=== PATIENT | female | born 1985 | race African-American/Black ===

== ENCOUNTER 2016-07-29 18:20 | Emergency (ER) | payer OTHER ==
[~2016-07-29] VITALS: Ht 165.1 cm; Wt 63.5 kg
[~2016-07-29 18:20] MED LIST: BACL10TA PO; DOCU-27 PO; HYDR-2666 PO; LISI10TA2 PO; NAPR500T PO; ONDA4TAB7 PO; OXYC-323 PO; PHEN-318 PO; RANI150T6 PO; SULF1TAB24 PO; TAMS0.4C2 PO; TRAZ100T12 PO
[2016-07-29 18:30] VITALS: BP 147/100
--- NOTE | 2016-07-29 19:01 | PHYS DOC ---
Past Medical History Past Medical History: Asthma, Depression, Hypertension, Kidney Stone Additional Past Medical Histor: HERNIA Past Surgical History: Other Additional Past Surgical Histo: HERNIA Alcohol Use: Occasionally Drug Use: None Adult General Chief Complaint Chief Complaint: ABDOMINAL PAIN HPI HPI Patient is a 30 year old female with prior ventral hernia repair who presents with more than 1 year of ventral abdominal pain that is constant with fluctuating intensity. Notes 1 year of intermittent nausea and vomiting as well. Denies any changes from chronic complaints. State she was seen by her OB doctor recently and told she likely has another ventral hernia and to get this checked out by her surgeon. She does not know who her surgeon was, so she came here for help as this is where she was prior repaired. She denies fever or chills, current nausea, constipation, dysuria, hematuria. States she had a normal bowel movement this morning. Review of Systems Review of Systems Constitutional: Denies fever or chills [] Eyes: Denies change in visual acuity, redness, or eye pain [] HENT: Denies nasal congestion or sore throat [] Respiratory: Denies cough or shortness of breath [] Cardiovascular: No additional information not addressed in HPI [] GI: Denies bloody stools or diarrhea [] : Denies dysuria or hematuria [] Musculoskeletal: Denies back pain or joint pain [] Integument: Denies rash or skin lesions [] Neurologic: Denies headache, focal weakness or sensory changes [] Endocrine: Denies polyuria or polydipsia [] Allergies Allergies Allergies Coded Allergies Type Severity Reaction Last Updated Verified No Known Drug Allergies 04/11/15 No Physical Exam Physical Exam Constitutional: Well developed, well nourished, no acute distress, non-toxic appearance. [] HENT: Normocephalic, atraumatic, bilateral external ears normal, oropharynx moist, nose normal. [] Eyes: PERRLA, EOMI. [] Neck: Normal range of motion, supple. [] Cardiovascular:Heart rate regular rhythm [] Lungs & Thorax: Bilateral breath sounds clear to auscultation [] Abdomen: Bowel sounds normal, soft, tenderness about abdominal wall defect vs scarring that is approx 4cm in area superior of umbilicus, no protruding masses , no guarding or rebound. [] Skin: Warm, dry, no erythema, no rash. [] Back: Normal ROM. [] Extremities: No tenderness, ROM intact, no edema. [] Neurologic: Alert and oriented X 3, normal motor function, normal sensory function, no focal deficits noted. [] Psychologic: Affect normal, judgement normal, mood normal. [] Current Patient Data Vital Signs Vital Signs Date Time Temp Pulse Resp B/P (MAP) Pulse Ox O2 Delivery O2 Flow Rate FiO2 07/29/16 18:30 98.4 86 18 147/100 (116) 99 Room Air 98.4 Course & Med Decision Making Course & Med Decision Making Appears Dr. Presley performed prior hernia repair. Discussed she does not appear obstructive at this time and do not recommend imaging or labs. Encouraged follow up with PCP for chronic abdominal pain and to call surgery clinic to discuss possible hernia repair. Return precautions given. She understands plan. Dragon Disclaimer Dragon Disclaimer This electronic medical record was generated, in whole or in part, using a voice recognition dictation system. Departure Departure Impression: Primary Impression: Abdominal pain Additional Impression: Ventral hernia without obstruction or gangrene Disposition: HOME, SELF-CARE Condition: STABLE Referrals: AKASH PRESLEY MD Patient Instructions: Hernia, [id number] Additional Instructions: Take Tylenol or naproxen as needed for pain. Follow up with general surgery clinic and primary care clinic. Call for appointment. Return for any concerns. Problem Qualifiers Primary Impression: Abdominal pain Abdominal location: unspecified location Qualified Codes: R10.9 - Unspecified abdominal pain Ramsey RODRIGUEZ MD July 29, 2016 19:01
== END 2016-07-29 19:08 | disposition home or self-care (01) ==
LOC: ER 18:20
DX: K43.9 Ventral hernia without obstruction or gangrene (principal); J45.909 Unspecified asthma, uncomplicated; F32.9 Major depressive disorder, single episode, unspecified; I10 Essential (primary) hypertension
CPT/HCPCS: 81025; 99284

== ENCOUNTER 2016-12-27 09:00 | Emergency (ER) | payer OTHER ==
[~2016-12-27] VITALS: Ht 165.1 cm; Wt 63.5 kg
[~2016-12-27 09:00] MED LIST changes: +DOCU-109 PO; -DOCU-27 PO; -HYDR-2666 PO; +HYDR-2758 PO
[2016-12-27] MEDS ORDERED: traMADol 50 MG TABLET PO ONE (09:30)
[2016-12-27 09:47] LABS: BILIRUBIN,URINE SMALL (NEG); GLUCOSE,URINE NEGATIVE (NEG); NITRITE,URINE NEGATIVE (NEG); PROTEIN,URINE NEGATIVE (NEG-TRACE)
[2016-12-27] MEDS ORDERED: IBUPROFEN 600 MG TABLET. PO ONE (10:00)
[2016-12-27 10:05] LABS: BACTERIA,URINE FEW /HPF (0-FEW); RBC,URINE 0 /HPF (0-2); SQUAMOUS EPITHELIAL CELL,UR MOD /LPF; WBC,URINE OCC /HPF (0-4); YEAST,URINE PRESENT /HPF
[2016-12-27] MEDS ORDERED: FLUC150T PO (10:39)
--- NOTE | 2016-12-27 10:39 | PHYS DOC ---
Past Medical History Past Medical History: Asthma, Depression, Hypertension, Kidney Stone Additional Past Medical Histor: HERNIA Past Surgical History: Other Additional Past Surgical Histo: HERNIA Additional Information: PT REPORTS NOT SMOKING AT THIS TIME. Alcohol Use: Occasionally Additional Information: PT REPORTS SHE DOES NOT DRINK AT THIS TIME. Drug Use: None Adult General Chief Complaint Chief Complaint: ABDOMINAL PAIN HPI HPI Patient is a 31 year old female with a history of hypertension, depression, asthma, ventral hernia repair in August, who presents today complaining of periumbilical pressure during voiding and dysuria that began a week ago. Patient denies any fever. Denies any nausea, vomiting or diarrhea. Review of Systems Review of Systems Constitutional: Denies fever or chills [] Eyes: Denies change in visual acuity, redness, or eye pain [] HENT: Denies nasal congestion or sore throat [] Respiratory: Denies cough or shortness of breath [] Cardiovascular: No additional information not addressed in HPI [] GI: periumbilical abdominal pressure, denies nausea, vomiting, bloody stools or diarrhea [] : dysuria denies hematuria [] Musculoskeletal: Denies back pain or joint pain [] Integument: Denies rash or skin lesions [] Neurologic: Denies headache, focal weakness or sensory changes [] Current Medications Current Medications Current Medications Medications (Trade) Dose Ordered Sig/Fidel Start Time Stop Time Status Last Admin Dose Admin Fluconazole (Diflucan) 150 mg 1X ONCE 12/27/16 10:45 12/27/16 10:46 DC 12/27/16 10:44 150 MG Ibuprofen (Motrin) 600 mg 1X ONCE 12/27/16 10:00 12/27/16 10:01 DC 12/27/16 09:56 600 MG Tramadol HCl (Ultram) 50 mg 1X ONCE 12/27/16 09:30 12/27/16 09:31 Cancel Allergies Allergies Allergies Coded Allergies Type Severity Reaction Last Updated Verified No Known Drug Allergies 04/11/15 No Physical Exam Physical Exam Constitutional: Well developed, well nourished, no acute distress, non-toxic appearance. [] HENT: Normocephalic, atraumatic, bilateral external ears normal, oropharynx moist, no oral exudates, nose normal. [] Eyes: PERRLA, EOMI, conjunctiva normal, no discharge. [] Neck: Normal range of motion, no tenderness, supple, no stridor. [] Cardiovascular:Heart rate regular rhythm, no murmur [] Lungs & Thorax: Bilateral breath sounds clear to auscultation [] Abdomen: Bowel sounds normal, soft, no tenderness, no masses, no pulsatile masses. [] Skin: Warm, dry, no erythema, no rash. [] Back: No tenderness, no CVA tenderness. [] Extremities: No tenderness, no cyanosis, no clubbing, ROM intact, no edema. [] Neurologic: Alert and oriented X 3, normal motor function, normal sensory function, no focal deficits noted. [] Psychologic: Affect normal, judgement normal, mood normal. [] Current Patient Data Lab Values Laboratory Tests Test 12/27/16 09:35 12/27/16 09:37 Urine Collection Type Unknown Urine Color Tiffanie Urine Clarity Clear Urine pH 7.0 Urine Specific [place] 1.025 Urine Protein Negative mg/dL (NEG-TRACE) Urine Glucose (UA) Negative mg/dL (NEG) Urine Ketones (Stick) Negative mg/dL (NEG) Urine Blood Negative (NEG) Urine Nitrite Negative (NEG) Urine Bilirubin Small (NEG) Urine Urobilinogen Dipstick 1.0 mg/dL (0.2 mg/dL) Urine Leukocyte Esterase Trace (NEG) Urine RBC 0 /HPF (0-2) Urine WBC Occ /HPF (0-4) Urine Squamous Epithelial Cells Mod /LPF Urine Bacteria Few /HPF (0-FEW) Urine Mucus Marked /LPF Urine Yeast Present /HPF POC Urine HCG, Qualitative Hcg negative (Negative) EKG EKG [] Radiology/Procedures Radiology/Procedures [] Course & Med Decision Making Course & Med Decision Making Pertinent Labs and Imaging studies reviewed. (See chart for details) Patient is in the ED with periumbilical pressure and dysuria that began one week ago. Urine looks contaminated. It has trace amount of leukocytes and moderate squamous cell epithelium. She is positive for yeast in her urine. D/C with fluconazole. Recommended Tylenol/Motrin for pain. Recommended she follows up with her FLOORING GRADER or PCP in 1-2 weeks if symptoms continue. Dragon Disclaimer Dragon Disclaimer This electronic medical record was generated, in whole or in part, using a voice recognition dictation system. Departure Departure Impression: Primary Impression: Yeast UTI Disposition: HOME, SELF-CARE Condition: STABLE Referrals: NO PCP (PCP) FRANKO SOTO DO follow up with your doctor in one week Patient Instructions: Dysuria-Brief Additional Instructions: Your urine shows you have a yeast infection. We put you on medications to clear this infection. Take it as prescribed. Follow-up with your doctor in one week. Scripts Ibuprofen (IBUPROFEN) 600 Mg Tablet 600 MG PO PRN Q6HRS Y for INFLAMMATION, #30 TAB Prov: ROLLY MCKEON APRN 12/27/16 Fluconazole (DIFLUCAN) 150 Mg Tablet 1 TAB PO ONCE, #1 TAB 0 Refills take seven days from today Prov: ROLLY MCKEON APRN 12/27/16 ROLLY MCKEON APRN Dec 27, 2016 10:39
[2016-12-27 10:42] VITALS: BP 147/83
[2016-12-27] MEDS ORDERED: FLUCONAZOLE 100 MG TABLET. PO ONE (10:45)
[2016-12-27] MEDS ORDERED: IBUP-1007 PO (11:08)
== END 2016-12-27 11:04 | disposition home or self-care (01) ==
LOC: ER 09:00
DX: B37.49 Other urogenital candidiasis (principal); J45.909 Unspecified asthma, uncomplicated; I10 Essential (primary) hypertension; Z87.442 Personal history of urinary calculi
CPT/HCPCS: 81001; 81025; 99283

== ENCOUNTER 2018-02-22 09:22 | Day surgery (SDC) | payer OTHER ==
[~2018-02-22] VITALS: Ht 165.1 cm; Wt 73.5 kg
[~2018-02-22 09:22] MED LIST changes: +CYCL10TA2 PO; +FLUC150T PO; +FLUT16SP NS; -HYDR-2758 PO; +HYDR-2761 PO; +IBUP-1007 PO; +IV RINGERS,LACTATED 1000ML 1,000 ML IV SCH; +LIDOCAINE 1% PF 2 ML VIAL. ID PRN; +NAPR-683 PO; -NAPR500T PO; +ONDANSETRON PF 4 MG/2 ML VIAL. IV PRN; -OXYC-323 PO; +OXYC1TAB15 PO; +PROCHLORPERAZINE 10 MG/2 ML VIAL. IV PRN; +RANI150T21 PO; -RANI150T6 PO; +TRAZ-86 PO; -TRAZ100T12 PO; +VENTOLIN HFA18 GM INH; +fentaNYL PF VIAL 100 MCG/2 ML VIAL IV PRN
[2018-02-22] MEDS ORDERED: SEVOFLURANE 61 TO 120 MINUTES. IH ONE (09:59)
[2018-02-22] MEDS ORDERED: fentaNYL PF VIAL 100 MCG/2 ML VIAL ONE ×4 (09:59→13:31)
[2018-02-22] MEDS ORDERED: ROCURONIUM 50 MG/5 ML VIAL. ONE ×2 (09:59→11:12)
[2018-02-22] MEDS ORDERED: MIDAZOLAM HCL/PF 2 MG/2 ML VIAL. ONE (09:59)
[2018-02-22] MEDS ORDERED: NEOSTIGMINE METHYLSULFATE 5 MG/5 ML SYRINGE. ONE (09:59)
[2018-02-22] MEDS ORDERED: GLYCOPYRROLATE 1 MG/5 ML VIAL. ONE (09:59)
[2018-02-22 10:00] LABS: U PREG PATIENT NEGATIVE (NEG)
[2018-02-22] MEDS ORDERED: ONDANSETRON PF 4 MG/2 ML VIAL. ONE (10:00)
[2018-02-22] MEDS ORDERED: PROPOFOL 20 ML IV ONE (10:00)
[2018-02-22] MEDS ORDERED: DEXAMETHASONE SOD PHOS 20 MG/5 ML VIAL. ONE (10:00)
[2018-02-22] MEDS ORDERED: KETOROLAC 30 MG/ML INJ FOR OR. INJ ONE (10:00)
[2018-02-22] MEDS ORDERED: LIDOCAINE 2% PF Vial for OR 5 ML VIAL. ONE (10:00)
[2018-02-22] MEDS ORDERED: BUPIVAC MPF-EPI 0.5%-1:200000 30 ML VIAL. ONE (10:14)
[2018-02-22] MEDS ORDERED: ESMOLOL 100 MG/10 ML VIAL. IV ONE (11:00)
[2018-02-22] MEDS ORDERED: hydrALAZINE 20 MG/ML VIAL. ONE (11:00)
[2018-02-22] MEDS ORDERED: METOPROLOL TARTRATE 5 MG/5 ML VIAL. IVP ONE (11:33)
--- NOTE | 2018-02-22 12:39 | PDOC4 ---
Operative Note Operative Note Date: 02/22/2018 Preoperative diagnosis: Recurrent incisional hernia Postoperative diagnosis: Same Procedure: Robotic-assisted laparoscopic ventral hernia repair with mesh Surgeon: Bobby Specimen: None Dictation: Patient is a 32-year-old female but had a incisional hernia repair several years ago. Had a during her she developed a recurrence of her hernia. Procedure of robotic-assisted laparoscopic incisional hernia repair with mesh was explained to the patient in detail all risks benefits were also discussed including bleeding infection injury to intra- abdominal contents possibly necessitating further open operations. Alternatives to this procedure also discussed with the patient seemed understanding table verbal and written consent had a procedure performed. Patient was taken to the operating room placed in supine position general anesthesia was initiated once patient was sleeping in bed her abdomen was prepped and draped usual sterile fashion using ChloraPrep and area in the left upper quadrant was injected with quarter percent Marcaine with epinephrine surgeon Jennifer blade scalpel and a 5 mm Visiport was placed into the abdomen under direct visualization and a pneumoperitoneum achieved. The abdomen was inspected as quite a few adhesions A da Norma port was placed in the left mid abdomen and a second da Norma port was placed in the left lower abdomen a 5 mm Visiport was changed out for da Norma port several of the adhesions were taken down with sharp dissection. At this point the da Norma robot was brought in and docked to all port sites. Rest of the adhesions were taken down with sharp dissection as well as a loop of incarcerated bowel in the hernia defect which was reduced hernia then was closed with a running permanent 2-0V lock suture. Ventral light ST mesh was then placed within the abdomen and over the hernia defect this was sewn into place with a running 20V lock absorbable suture. Ports run and removed the pneumoperitoneum reduced all port sites closed for septic Monocryl Mastisol Steri-Strips and island dressings were applied. Patient was awakened and extubated in the operating room to recovery in stable condition all sponge instrument needle clinical mental health counselor status correct estimated blood loss 20 mL. AKASH PRESLEY MD Feb 22, 2018 12:39
--- NOTE | 2018-02-22 12:40 | DISCH ---
DISCHARGE INSTRUCTIONS Condition on Discharge Condition on Discharge: Stable Activity After Discharge Activity Instructions for Disc: Avoid exertion Other activity instructions: no lifting greater than 20 pounds for 2 weeks Lifting Instructions after Dis: No heavy lifting Diet after Discharge Diet after Discharge: Regular Wound Incision Care Other wound/incision instructi: Bouchra shower in 24 hours Contacting the after DC Call your doctor for: If your condition worsens Follow-Up Follow up with: Dr. Presley in 2 weeks AKASH PRESLEY MD Feb 22, 2018 12:40
[2018-02-22] MEDS ORDERED: PROCHLORPERAZINE 10 MG/2 ML VIAL. ONE (12:44)
[2018-02-22] MEDS: fentaNYL PF VIAL 100 MCG/2 ML VIAL IV PRN ×4 (13:08→13:47)
[2018-02-22] MEDS ORDERED: HYDR-3164 PO (13:14)
[2018-02-22] MEDS ORDERED: HYDROcodone/APAP 5/325MG 1 TAB TABLET PO ONE (13:30)
[2018-02-22] MEDS ORDERED: HYDROcodone/APAP 5/325MG 1 TAB TABLET ONE (13:45)
[2018-02-22 14:43] VITALS: BP 125/75
== END 2018-02-22 14:52 | disposition home or self-care (01) ==
LOC: SURG 09:22
PROVIDERS: ATTEND Surgery
DX: K43.0 Incisional hernia with obstruction, without gangrene (principal); I10 Essential (primary) hypertension; F32.9 Major depressive disorder, single episode, unspecified; J44.9 Chronic obstructive pulmonary disease, unspecified; Z88.5 Allergy status to narcotic agent; Z79.2 Long term (current) use of antibiotics; Z79.899 Other long term (current) drug therapy; Z87.442 Personal history of urinary calculi; Z98.890 Other specified postprocedural states; Z82.49 Family history of ischemic heart disease and other diseases of the circulatory system; Z87.891 Personal history of nicotine dependence; Z72.89 Other problems related to lifestyle
CPT/HCPCS: 49657; 81025; A7015; C1781; J0360; J0780; J1100; J1885; J2001; J2250; J2405; J2704; J2710; J3010; J3490; J7120; S2900; J0690

== ENCOUNTER → 2018-10-17 | Day surgery (SDC) | payer OTHER ==
[~2018-10-17] VITALS: Ht 165.1 cm; Wt 70.0 kg
[~2018-10-17] MED LIST changes: +ACETAMINOPHEN 500 MG TABLET PO PRN; +BUPIVACAINE MPF 0.25% 30 ML VIAL. ONE; +DESFLURANE 16 TO 30 MINUTES. IH ONE; +DEXAMETHASONE SOD PHOS 4 MG/ML VIAL ONE; +GLYCOPYRROLATE 1 MG/5 ML VIAL. ONE; +HYDR-3164 PO; +HYDROcodone/APAP 5/325MG 1 TAB TABLET PO ONE; +HYDROmorphone 2 MG/ML VIAL IV PRN; +KETOROLAC 30 MG/ML INJ FOR OR. INJ ONE; +LIDOCAINE 2% PF 5 ML VIAL. ONE; +MORPHINE SULFATE 2 MG/ML VIAL. IV PRN; +NEOSTIGMINE METHYLSULFATE 5 MG/5 ML SYRINGE. ONE; +OMEP20TA8 PO; +ONDANSETRON PF 4 MG/2 ML VIAL. ONE; +PROPOFOL 20 ML IV ONE; +RANI-376 PO; -RANI150T21 PO; +ROCURONIUM 50 MG/5 ML VIAL. ONE; +TRAM50TA PO; +fentaNYL PF VIAL 100 MCG/2 ML VIAL ONE
--- NOTE | 2018-10-17 13:11 | PDOC4 ---
Operative Note Operative Note Date: 10/17/2018 Preoperative diagnosis: Abdominal pain Postoperative diagnosis: Abdominal adhesions Procedure: Diagnostic laparoscopy with lysis of adhesions Surgeon: Bobby Specimen: None Dictation: Patient is a 33-year-old female who's describing abdominal pain generalized she's had a couple of abdominal hernias repaired as well as an inguinal hernia with mesh last time she had a ventral hernia repair she had quite a few adhesions she states that after she had that repair and adhesions taken down she felt much better. Procedure of diagnostic laparoscopy with lysis of adhesions was explained to the patient in detail risk benefits were also discussed including bleeding infection alternatives to the procedure also discussed with the patient who seemed to understand and gave both verbal and written consent to have the procedure performed. Patient was taken to the operating room placed in supine position general anesthesia was initiated once patient was sleep and intubated her abdomen was prepped and draped usual sterile fashion using ChloraPrep and area in the left upper quadrant was injected with quarter percent Marcaine incision was made 11 blade knife and a 5 mm Visiport was placed under direct visualization into the abdomen creating pneumoperitoneum. The abdomen was inspected with 5 mm scope and camera there were quite a few adhesions throughout the abdomen. A 5 mill meter port was placed in the left mid abdomen and one in the left lower abdomen under direct visualization using the sono incision the adhesions were taken down with sharp and blunt dissection down to the pelvis. Most of the adhesions in the upper abdomen for 2 omentum. Within the pelvis the uterus was adhesed to the anterior abdominal wall. Intraoperative phone call was made to [facility] [employer]CHIT[employer] surgeon's recommendation was to leave the uterus in place as is. Multiple photographs of the uterus ovaries were taken. At this point the pneumoperitoneum was reduced all ports removed port sites were all closed with 40 subarticular Monocryl Mastisol Steri-Strips and island dressings were applied. Patient was awakened and extubated in the operating room taken to recovery in stable condition all sponge instrument needle counts listed as correct estimated blood loss 5 mL AKASH PRESLEY MD Oct 17, 2018 13:11
--- NOTE | 2018-10-17 13:14 | DISCH ---
DISCHARGE INSTRUCTIONS Condition on Discharge Condition on Discharge: Stable Activity After Discharge Activity Instructions for Disc: Avoid exertion Other activity instructions: no lifting more than 20 pounds for 2 weeks Lifting Instructions after Dis: No heavy lifting Diet after Discharge Diet after Discharge: Regular Wound Incision Care Other wound/incision instructi: Bouchra shower in 24 hours Contacting the after DC Call your doctor for: If your condition worsens Follow-Up Follow up with: Dr. Presley in 2 weeks AKASH PRESLEY MD Oct 17, 2018 13:14
[2018-10-17] MEDS: fentaNYL PF VIAL 100 MCG/2 ML VIAL IV PRN ×3 (13:33→14:13)
[2018-10-17 14:33] VITALS: BP 142/78
== END ==
LOC: SURG 10:48
PROVIDERS: ATTEND Surgery
DX: K66.0 Peritoneal adhesions (postprocedural) (postinfection) (principal); F32.9 Major depressive disorder, single episode, unspecified; J44.9 Chronic obstructive pulmonary disease, unspecified; E78.5 Hyperlipidemia, unspecified; I12.9 Hypertensive chronic kidney disease with stage 1 through stage 4 chronic kidney disease, or unspecified chronic kidney disease; N18.1 Chronic kidney disease, stage 1; Z98.890 Other specified postprocedural states; Z87.891 Personal history of nicotine dependence
CPT/HCPCS: 49329; 81025; A7015; J0690; J1100; J2001; J2405; J2704; J2710; J3010; J3490; J1885

== ENCOUNTER 2018-11-29 09:44 | Emergency (ER) | payer OTHER ==
[~2018-11-29] VITALS: Ht 165.1 cm; Wt 69.9 kg
[~2018-11-29 09:44] MED LIST changes: -ACETAMINOPHEN 500 MG TABLET PO PRN; -BUPIVACAINE MPF 0.25% 30 ML VIAL. ONE; -DESFLURANE 16 TO 30 MINUTES. IH ONE; -DEXAMETHASONE SOD PHOS 4 MG/ML VIAL ONE; -GLYCOPYRROLATE 1 MG/5 ML VIAL. ONE; -HYDROcodone/APAP 5/325MG 1 TAB TABLET PO ONE; -HYDROmorphone 2 MG/ML VIAL IV PRN; -IV RINGERS,LACTATED 1000ML 1,000 ML IV SCH; -KETOROLAC 30 MG/ML INJ FOR OR. INJ ONE; -LIDOCAINE 1% PF 2 ML VIAL. ID PRN; -LIDOCAINE 2% PF 5 ML VIAL. ONE; -MORPHINE SULFATE 2 MG/ML VIAL. IV PRN; -NEOSTIGMINE METHYLSULFATE 5 MG/5 ML SYRINGE. ONE; -ONDANSETRON PF 4 MG/2 ML VIAL. IV PRN; -ONDANSETRON PF 4 MG/2 ML VIAL. ONE; -PROCHLORPERAZINE 10 MG/2 ML VIAL. IV PRN; -PROPOFOL 20 ML IV ONE; -ROCURONIUM 50 MG/5 ML VIAL. ONE; -fentaNYL PF VIAL 100 MCG/2 ML VIAL IV PRN; -fentaNYL PF VIAL 100 MCG/2 ML VIAL ONE
[2018-11-29] MEDS ORDERED: KETOROLAC 30 MG/ML VIAL. IV ONE (10:15)
--- NOTE | 2018-11-29 10:37 | PHYS DOC ---
Past Medical History Past Medical History: Asthma, Depression, Hypertension, Kidney Stone Additional Past Medical Histor: HERNIA Past Surgical History: Other Additional Past Surgical Histo: HERNIA Alcohol Use: Occasionally Drug Use: None Adult General Chief Complaint Chief Complaint: ABDOMINAL PAIN HPI HPI Patient is a 33 year old female with history of depression, hypertension, asthma, who presents to the ED today complaining of 8 out of 10 generalized abdominal pain that has been going on for months. Patient denies any exacerbating or relieving factors. She describes the pain as sharp and constant. She states on October 17, 2018 and she had a laparoscopic surgery to remove admissions from her abdomen. She states she has previous history of umbilical hernia repair as well as inguinal hernia repair and developed adhesions from these surgeries. She states when they did the procedure the general surgeon informed her she has adhesions in her pelvis. She states the general surgeon set her with an appointment to see an MULTIMEDIA EDITOR, she states she was seen by the MULTIMEDIA EDITOR on Sunday this week who also did the pelvic exam as well as pelvic ultrasound, she states the MULTIMEDIA EDITOR informed her she needs to follow-up sometime in December. Patient states she has continued to have the pain hence the reason she came back to the ED. Review of Systems Review of Systems Constitutional: Denies fever or chills [] Eyes: Denies change in visual acuity, redness, or eye pain [] HENT: Denies nasal congestion or sore throat [] Respiratory: Denies cough or shortness of breath [] Cardiovascular: No additional information not addressed in HPI [] GI: Reports generalized abdominal pain, denies nausea, vomiting, bloody stools or diarrhea [] : Denies dysuria or hematuria [] Musculoskeletal: Denies back pain or joint pain [] Integument: Denies rash or skin lesions [] Neurologic: Denies headache, focal weakness or sensory changes [] All other systems were reviewed and found to be within normal limits, except as documented in this note. Current Medications Current Medications Current Medications Medications (Trade) Dose Ordered Sig/Fidel Start Time Stop Time Status Last Admin Dose Admin Ketorolac Tromethamine (Toradol 30mg Vial) 30 mg 1X ONCE 11/29/18 11:30 11/29/18 11:31 DC 11/29/18 11:19 30 MG Allergies Allergies Allergies Coded Allergies Type Severity Reaction Last Updated Verified acetaminophen Allergy Unknown Itching 10/17/18 Yes oxycodone Allergy Unknown Itching 10/17/18 Yes Physical Exam Physical Exam Constitutional: Well developed, well nourished, no acute distress, non-toxic appearance. [] HENT: Normocephalic, atraumatic, bilateral external ears normal, oropharynx moist, no oral exudates, nose normal. [] Eyes: PERRLA, EOMI, conjunctiva normal, no discharge. [] Neck: Normal range of motion, no tenderness, supple, no stridor. [] Cardiovascular:Heart rate regular rhythm, no murmur [] Lungs & Thorax: Bilateral breath sounds clear to auscultation [] Abdomen: Healed laparoscopic surgical incisions noted on the left side of the abdomen. Bowel sounds normal, soft, no tenderness, no masses, no pulsatile masses. [] Skin: Warm, dry, no erythema, no rash. [] Back: No tenderness, no CVA tenderness. [] Extremities: No tenderness, no cyanosis, no clubbing, ROM intact, no edema. [] Neurologic: Alert and oriented X 3, normal motor function, normal sensory function, no focal deficits noted. [] Psychologic: Affect normal, judgement normal, mood normal. [] Current Patient Data Vital Signs Vital Signs Date Time Temp Pulse Resp B/P (MAP) Pulse Ox O2 Delivery O2 Flow Rate FiO2 11/29/18 11:38 69 16 138/92 (107) 100 Room Air 11/29/18 10:00 98.3 98.3 Lab Values Laboratory Tests Test 11/29/18 10:25 11/29/18 10:26 11/29/18 12:35 Urine Collection Type Unknown Urine Color Yellow Urine Clarity Clear Urine pH 7.0 Urine Specific [place] 1.015 Urine Protein Negative mg/dL (NEG-TRACE) Urine Glucose (UA) Negative mg/dL (NEG) Urine Ketones (Stick) Negative mg/dL (NEG) Urine Blood Large (NEG) Urine Nitrite Negative (NEG) Urine Bilirubin Negative (NEG) Urine Urobilinogen Dipstick 1.0 mg/dL (0.2 mg/dL) Urine Leukocyte Esterase Negative (NEG) Urine RBC >40 /HPF (0-2) Urine WBC 1-4 /HPF (0-4) Urine Squamous Epithelial Cells Mod /LPF Urine Bacteria 0 /HPF (0-FEW) Urine Opiates Screen Neg (NEG) Urine Methadone Screen Neg (NEG) Urine Barbiturates Neg (NEG) Urine Phencyclidine Screen Neg (NEG) Urine Amphetamine/Methamphetamine Neg (NEG) Urine Benzodiazepines Screen Neg (NEG) Urine Cocaine Screen Neg (NEG) Urine Cannabinoids Screen Pos (NEG) Urine Ethyl Alcohol Neg (NEG) POC Urine HCG, Qualitative Hcg negative (Negative) White Blood Count 10.8 x10^3/uL (4.0-11.0) Red Blood Count 4.31 x10^6/uL (3.50-5.40) Hemoglobin 13.6 g/dL (12.0-15.5) Hematocrit 40.5 % (36.0-47.0) Mean Corpuscular Volume 94 fL (79-100) Mean Corpuscular Hemoglobin 32 pg (25-35) Mean Corpuscular Hemoglobin Concent 34 g/dL (31-37) Red Cell Distribution Width 13.5 % (11.5-14.5) Platelet Count 252 x10^3/uL (140-400) Neutrophils (%) (Auto) 66 % (31-73) Lymphocytes (%) (Auto) 26 % (24-48) Monocytes (%) (Auto) 5 % (0-9) Eosinophils (%) (Auto) 2 % (0-3) Basophils (%) (Auto) 1 % (0-3) Neutrophils # (Auto) 7.1 x10^3/uL (1.8-7.7) Lymphocytes # (Auto) 2.8 x10^3/uL (1.0-4.8) Monocytes # (Auto) 0.6 x10^3/uL (0.0-1.1) Eosinophils # (Auto) 0.2 x10^3/uL (0.0-0.7) Basophils # (Auto) 0.1 x10^3/uL (0.0-0.2) Sodium Level 143 mmol/L (136-145) Potassium Level 4.5 mmol/L (3.5-5.1) Chloride Level 106 mmol/L (98-107) Carbon Dioxide Level 28 mmol/L (21-32) Anion Gap 9 (6-14) Blood Urea Nitrogen 9 mg/dL (7-20) Creatinine 0.8 mg/dL (0.6-1.0) Estimated GFR (Cockcroft-Gault) 100.0 BUN/Creatinine Ratio 11 (6-20) Glucose Level 81 mg/dL (70-99) Calcium Level 9.9 mg/dL (8.5-10.1) Total Bilirubin 0.4 mg/dL (0.2-1.0) Aspartate Amino Transferase (AST) 12 U/L (15-37) L Alanine Aminotransferase (ALT) 15 U/L (14-59) Alkaline Phosphatase 118 U/L (46-116) H Total Protein 8.0 g/dL (6.4-8.2) Albumin 4.5 g/dL (3.4-5.0) Albumin/Globulin Ratio 1.3 (1.0-1.7) Lipase 139 U/L (73-393) Ethyl Alcohol Level < 10 mg/dL (0-10) Laboratory Tests 11/29/18 12:35 Laboratory Tests 11/29/18 12:35 EKG EKG [] Radiology/Procedures Radiology/Procedures [] Course & Med Decision Making Course & Med Decision Making Pertinent Labs and Imaging studies reviewed. (See chart for details) This is a 33-year-old female patient presented to the ED today leaning over abdominal pain. See history of present illness. Patient had adhesions removed from her abdomen in October she was noted to have lesions in her pelvis as well. She followed up with an MULTIMEDIA EDITOR on Sunday this. She has an appointment to see the MULTIMEDIA EDITOR in December. She has continued to have pain and hence the reason she is back in the ED Considering the extensive testing that has been done with her general surgeon as well as her MULTIMEDIA EDITOR will check her labs and if they look okay we will send patient continue following up with the specialist. Patient's labs are negative. D/c to home. Has f/u with OB in December. Dragon Disclaimer Dragon Disclaimer This electronic medical record was generated, in whole or in part, using a voice recognition dictation system. Departure Departure Impression: Primary Impression: Abdominal pain Disposition: HOME, SELF-CARE Condition: STABLE Referrals: KANDI MOJICA MD (PCP) LACI CARTER MD Follow up in December Patient Instructions: Abdominal Pain (Nonspecific) Additional Instructions: You were evaluated in the emergency room for abdominal pain, please follow-up with your MULTIMEDIA EDITOR as scheduled in December Problem Qualifiers Primary Impression: Abdominal pain Abdominal location: generalized Qualified Codes: R10.84 - Generalized abdominal pain ROLLY MCKEON APRN Nov 29, 2018 10:37
[2018-11-29 10:41] LABS: BARBITURATES NEG (NEG); BENZODIAZEPINES NEG (NEG); CANNABINOIDS POS (NEG); COCAINE NEG (NEG); METHADONE NEG (NEG); OPIATES NEG (NEG); PHENCYCLIDINE NEG (NEG)
[2018-11-29 10:42] LABS: AMPHETAMINE/METHAMPHETAMINE NEG (NEG)
[2018-11-29 10:51] LABS: BACTERIA,URINE 0 /HPF (0-FEW); BILIRUBIN,URINE NEGATIVE (NEG); CLARITY,URINE CLEAR; COLOR,URINE YELLOW; NITRITE,URINE NEGATIVE (NEG); PROTEIN,URINE NEGATIVE (NEG-TRACE); RBC,URINE >40 /HPF (0-2); SQUAMOUS EPITHELIAL CELL,UR MOD /LPF
[2018-11-29] MEDS ORDERED: KETOROLAC 30 MG/ML VIAL. IM ONE (11:30)
[2018-11-29 12:51] LABS: BASO # 0.1 x10^3/uL (0.0-0.2); BASO % 1 % (0-3); EOS # 0.2 x10^3/uL (0.0-0.7); EOS % 2 % (0-3); HEMATOCRIT 40.5 % (36.0-47.0); HEMOGLOBIN 13.6 g/dL (12.0-15.5); LYMPH # 2.8 x10^3/uL (1.0-4.8); LYMPH % 26 % (24-48); MEAN CORPUSCULAR HEMOGLOBIN 32 pg (25-35); MEAN CORPUSCULAR HGB CONC 34 g/dL (31-37); MEAN CORPUSCULAR VOLUME 94 fL (79-100); MONO # 0.6 x10^3/uL (0.0-1.1); MONO % 5 % (0-9); NEUT # 7.1 x10^3/uL (1.8-7.7); NEUT % 66 % (31-73); PLATELET COUNT 252 x10^3/uL (140-400); RED BLOOD COUNT 4.31 x10^6/uL (3.50-5.40); RED CELL DISTRIBUTION WIDTH 13.5 % (11.5-14.5); WHITE BLOOD COUNT 10.8 x10^3/uL (4.0-11.0)
[2018-11-29 13:02] LABS: CALCIUM 9.9 mg/dL (8.5-10.1); CREATININE 0.8 mg/dL (0.6-1.0); POTASSIUM 4.5 mmol/L (3.5-5.1)
[2018-11-29 13:08] VITALS: BP 145/104
[2018-11-29 13:09] LABS: ALBUMIN 4.5 g/dL (3.4-5.0); ALBUMIN/GLOBULIN RATIO 1.3 (1.0-1.7); TOTAL BILIRUBIN 0.4 mg/dL (0.2-1.0)
== END 2018-11-29 13:25 | disposition home or self-care (01) ==
LOC: ER 09:44
DX: R10.84 Generalized abdominal pain (principal); J45.909 Unspecified asthma, uncomplicated; F32.9 Major depressive disorder, single episode, unspecified; I10 Essential (primary) hypertension; Z87.442 Personal history of urinary calculi; Z88.5 Allergy status to narcotic agent; Z88.6 Allergy status to analgesic agent
CPT/HCPCS: 36415; 80053; 80307; 81001; 81025; 83690; 85025; 96372; 99284; G0480; J1885

== ENCOUNTER 2020-02-20 09:11 | Emergency (ER) | payer OTHER ==
[~2020-02-20] VITALS: Ht 165.1 cm; Wt 72.7 kg
[~2020-02-20 09:11] MED LIST changes: +TRAZ-123 PO; -TRAZ-86 PO
--- NOTE | 2020-02-20 09:42 | PHYS DOC ---
Past Medical History Past Medical History: Asthma, Depression, Hypertension, Kidney Stone Additional Past Medical Histor: HERNIA Past Surgical History: Other Additional Past Surgical Histo: HERNIA Smoking Status: Former Smoker Alcohol Use: Occasionally Drug Use: None General Adult EDM: Chief Complaint: COUGH HPI: HPI: 34-year-old female with a history of cough over the past week. She also has a sharp pain in her chest that is worse with coughing. Her cough is nonproductive. She was tested for COVID-19 which was negative. She is used [id number] medications with minimal relief. She denies history of unilateral leg swelling hemoptysis history of DVT or PE. She denies recent surgery or immobilization. She denies having diabetes high cholesterol. She is a former smoker and has a history of hypertension. Review of systems is negative for abdominal pain nausea vomiting diaphoresis fevers or chills. All other review of systems negative. ED course: 34-year-old female presenting with a cough. EKG obtained and re viewed by myself shows sinus rhythm with a regular rate. ST segments congruent. Not suggestive of acute ischemia. Blood work unremarkable. Will discharge with inhaler and Neil Mehta to follow-up with her In 1 to 2 days. Heart Score: Risk Factors: Risk Factors: DM, Current or recent (<one month) smoker, HTN, HLP, family history of CAD, obesity. Risk Scores: Score 0 - 3: 2.5% MACE over next 6 weeks - Discharge Home Score 4 - 6: 20.3% MACE over next 6 weeks - Admit for Clinical Observation Score 7 - 10: 72.7% MACE over next 6 weeks - Early Invasive Strategies Allergies: Allergies: Allergies Coded Allergies Type Severity Reaction Last Updated Verified oxycodone Adverse Reaction Unknown Itching 02/20/20 Yes Physical Exam: PE: Constitutional: Well developed, well nourished, no acute distress, non-toxic appearance. [] HENT: Normocephalic, atraumatic, bilateral external ears normal, oropharynx moist, no oral exudates, nose normal. [] Eyes: PERRLA, EOMI, conjunctiva normal, no discharge. [] Neck: Normal range of motion, no tenderness, supple, no stridor. [] Cardiovascular:Heart rate regular rhythm, no murmur [] Lungs & Thorax: Bilateral breath sounds clear to auscultation [] Abdomen: Bowel sounds normal, soft, no tenderness, no masses, no pulsatile masses. [] Skin: Warm, dry, no erythema, no rash. [] Back: No tenderness, no CVA tenderness. [] Extremities: No tenderness, no cyanosis, no clubbing, ROM intact, no edema. [] Neurologic: Alert and oriented X 3, normal motor function, normal sensory function, no focal deficits noted. [] Psychologic: Affect normal, judgement normal, mood normal. [] EKG: EKG: [] Radiology/Procedures: Radiology/Procedures: [] Course & Med Decision Making: Course & Med Decision Making Pertinent Labs and Imaging studies reviewed. (See chart for details) [] Dragon Disclaimer: DragDatamolino Disclaimer: This electronic medical record was generated, in whole or in part, using a voice recognition dictation system. Departure Departure Impression: Primary Impression: Chest pain Additional Impression: Cough Disposition: 01 DC HOME SELF CARE/HOMELESS Condition: STABLE Referrals: CHRISTINE RETANA MD (PCP) Patient Instructions: Cough, Adult Additional Instructions: Follow-up with your primary physician in 1 to 2 days. Return to the emergency department if you have any new or concerning findings. Scripts Albuterol Sulfate (PROAIR HFA INHALER) 8.5 Gm Hfa.aer.ad 1 PUFF INH PRN Q6HRS PRN for SHORTNESS OF BREATH, #1 INHALER 0 Refills Prov: JAQUAN LANE MD 02/20/20 Benzonatate (TESSALON PERLE) 100 Mg Capsule 1 CAP PO TID, #21 CAP 0 Refills Prov: JAQUAN LANE MD 02/20/[address] MD Feb 20, 2020 09:42
[2020-02-20 10:14] LABS: BASO # 0.1 x10^3/uL (0.0-0.2); BASO % 1 % (0-3); EOS # 0.2 x10^3/uL (0.0-0.7); EOS % 2 % (0-3); HEMATOCRIT 38.8 % (36.0-47.0); LYMPH # 2.3 x10^3/uL (1.0-4.8); LYMPH % 21 % (24-48); MEAN CORPUSCULAR HEMOGLOBIN 31 pg (25-35); MEAN CORPUSCULAR HGB CONC 34 g/dL (31-37); MEAN CORPUSCULAR VOLUME 93 fL (79-100); MONO % 9 % (0-9); NEUT # 7.4 x10^3/uL (1.8-7.7); NEUT % 68 % (31-73); PLATELET COUNT 258 x10^3/uL (140-400); RED BLOOD COUNT 4.16 x10^6/uL (3.50-5.40); RED CELL DISTRIBUTION WIDTH 14.2 % (11.5-14.5)
[2020-02-20] MEDS ORDERED: ASPIRIN CHEWABLE 81 MG TABLET. PO ONE (10:15)
[2020-02-20] MEDS ORDERED: BENZONATATE 100 MG CAPSULE. PO ONE (10:30)
[2020-02-20] MEDS ORDERED: ACETAMINOPHEN 325 MG TABLET. PO ONE (10:30)
[2020-02-20 10:35] LABS: CREATININE 0.9 mg/dL (0.6-1.0); GFR 86.7; POTASSIUM 4.2 mmol/L (3.5-5.1)
[2020-02-20 10:41] LABS: DIRECT BILIRUBIN 0.1 mg/dL (0.0-0.2); TOTAL BILIRUBIN 0.4 mg/dL (0.2-1.0); TOTAL PROTEIN 7.6 g/dL (6.4-8.2)
[2020-02-20 11:38] VITALS: BP 141/92
[2020-02-20] MEDS ORDERED: BENZ100C PO (11:56)
[2020-02-20] MEDS ORDERED: ALBU2.5V8 INH (11:56)
--- NOTE | 2020-02-20 13:33 | EKG ---
[facility] [address] [place] [address] Test Date: 2020-02-20 Test Time: 09:23:51 Pat Name: JAMES RADER Department: Room: Gender: F [employer] C[employer]: : 1985 Requested By: JAQUAN LANE Order Number: [id number] Reading MD: Measurements Intervals [place] Rate: 77 P: 52 ID: [id number] QRS: 24 QRSD: 86 T: 19 QT: 378 QTc: 430 Interpretive Statements SINUS RHYTHM NORMAL ECG RI6.02 Compared to ECG 02/20/2020 09:20:43 Atrial flutter no longer present
--- NOTE | 2020-02-20 13:33 | RAD ---
XR CHEST 1V INDICATION: Reason: chest pain, soa x1 week / Spl. Instructions: / History: . COMPARISON STUDY: None. FINDINGS: Lungs: Normal lung volume. No pulmonary mass or consolidation. The tracheobronchial tree and hilar st ructures are normal. Pleura: No pleural effusion or pneumothorax. Heart and Mediastinum: The cardiomediastinal silhouette is normal. The great vessels of the thorax ar e normal. Bones and Soft Tissues: The bones and soft tissues are within normal limits. IMPRESSION: No acute cardiopulmonary process. Electronically signed by: Thee Amaya MD (02/20/2020 10:21 AM) [id number]
== END 2020-02-20 12:09 | disposition home or self-care (01) ==
LOC: ER 09:11
DX: R07.89 Other chest pain (principal); R05 Cough; J45.909 Unspecified asthma, uncomplicated; I10 Essential (primary) hypertension; F32.9 Major depressive disorder, single episode, unspecified; Z87.891 Personal history of nicotine dependence; Z98.890 Other specified postprocedural states; Z88.5 Allergy status to narcotic agent
CPT/HCPCS: 36415; 71045; 80048; 80076; 83690; 84484; 85025; 85379; 93005; 99285

== ENCOUNTER 2020-06-12 09:45 | Emergency (ER) | payer MEDICAID, OTHER ==
[~2020-06-12] VITALS: Ht 165.1 cm; Wt 73.0 kg
[~2020-06-12 09:45] MED LIST changes: +ALBU2.5V8 INH; +BENZ100C PO; +LISI10TA16 PO; -LISI10TA2 PO
[2020-06-12 10:10] VITALS: BP 119/76
--- NOTE | 2020-06-12 11:31 | PHYS DOC ---
Past Medical History Past Medical History: Asthma, Depression, Hypertension, Kidney Stone Additional Past Medical Histor: HERNIA (ROLLY MCKEON BENCH ASSEMBLER) Past Surgical History: Other Additional Past Surgical Histo: HERNIA (ROLLY MCKEON BENCH ASSEMBLER) Smoking Status: Former Smoker Alcohol Use: Occasionally Drug Use: None (ROLLY MCKEON BENCH ASSEMBLER) General Adult EDM: Chief Complaint: RING REMOVAL HPI: HPI: Patient is a 34 year old female who presents to the ED today complaining of a ring stuck on the left ring finger for 2 days. Patient states last night she attempted to remove it with soap with no success (ROLLY MCKEON BENCH ASSEMBLER) Review of Systems: Review of Systems: Constitutional: Denies fever or chills. [] Musculoskeletal: Reports ring stuck in the ring finger on the left hand Integument: Denies rash. [] Neurologic: Denies headache, focal weakness or sensory changes. [] Psychiatric: Denies depression or anxiety. [] (ROLLY MCKEON BENCH ASSEMBLER) Heart Score: C/O Chest Pain: N/A Risk Factors: Risk Factors: DM, Current or recent (<one month) smoker, HTN, HLP, family history of CAD, obesity. Risk Scores: Score 0 - 3: 2.5% MACE over next 6 weeks - Discharge Home Score 4 - 6: 20.3% MACE over next 6 weeks - Admit for Clinical Observation Score 7 - 10: 72.7% MACE over next 6 weeks - Early Invasive Strategies (ROLLY MCKEON BENCH ASSEMBLER) Allergies: Allergies: Allergies Coded Allergies Type Severity Reaction Last Updated Verified oxycodone Adverse Reaction Unknown Itching 02/20/20 Yes (ROLLY MCKEON BENCH ASSEMBLER) Physical Exam: PE: Constitutional: Well developed, well nourished, no acute distress, non-toxic appearance. [] Skin: Warm, dry, no erythema, no rash. [] Back: No tenderness, no CVA tenderness. [] Extremities: Left ring finger with a ring stuck on the proximal end, full range of motion to the left ring finger. +2 left radial pulse. Cap refill less than 2 seconds to left ring finger. Adequate sensation to the left ring finger. Neurologic: Alert and oriented X 3, normal motor function, normal sensory function, no focal deficits noted. [] Psychologic: Affect normal, judgement normal, mood normal. [] (MIKEROLLY Hitchcock APRN) Current Patient Data: Vital Signs: Vital Signs Date Time Temp Pulse Resp B/P (MAP) Pulse Ox O2 Delivery O2 Flow Rate FiO2 06/12/20 10:10 98.2 62 16 119/76 (90) 98 Room Air 98.2 (ROLLY MCKEON Coretta PAGAN) EKG: EKG: [] (ROLLY MCKEON APRN) Radiology/Procedures: Radiology/Procedures: [] (ROLLY MCKEON APRN) Course & Med Decision Making: Course & Med Decision Making Pertinent Labs and Imaging studies reviewed. (See chart for details) This is a 34-year-old female patient who presents to the ED today with a ring stuck in the left ring finger for 2 days. The ring was successfully cut out in the ED. Neurovascular exam is intact to the left ring finger. Discharge to home. (ROLLY MCKEON APRN) Dragon Disclaimer: Dragon Disclaimer: This electronic medical record was generated, in whole or in part, using a voice recognition dictation system. (ROLLY MCKEON APRN) Departure Departure Impression: Primary Impression: Tight ring on finger Disposition: 01 DC HOME SELF CARE/HOMELESS Condition: STABLE Referrals: CHRISTINE RETANA MD (PCP) Follow-up in 1 to 2 weeks as needed Patient Instructions: Foreign Body Additional Instructions: We removed the ring from your left ring finger. Try and keep the finger iced and elevated. Follow-up with your doctor in 1 to 2 weeks as needed Attending Signature Attending Signature I have reviewed the PA/CATERING AND EVENTS MANAGER's note and plan of care. I was available for consultation as needed during the patient's visit in the emergency department. I agree with the clinical impression, plan, and disposition. (GALLO LÓPEZ DO) ROLLY MCKEON APRN Jun 12, 2020 11:31 GALLO LÓPEZ DO Jun 14, 2020 16:15
== END 2020-06-12 11:51 | disposition home or self-care (01) ==
LOC: ER 09:45
DX: S60.455A Superficial foreign body of left ring finger, initial encounter (principal); J45.909 Unspecified asthma, uncomplicated; F32.9 Major depressive disorder, single episode, unspecified; I10 Essential (primary) hypertension; Z87.891 Personal history of nicotine dependence; Z87.442 Personal history of urinary calculi; Z98.890 Other specified postprocedural states; W45.8XXA Other foreign body or object entering through skin, initial encounter; Y93.89 Activity, other specified; Y92.89 Other specified places as the place of occurrence of the external cause; Y99.8 Other external cause status
CPT/HCPCS: 99281

== ENCOUNTER 2020-11-10 08:47 | Emergency (ER) | payer MEDICAID | END 2020-11-10 09:40 | disposition left against medical advice (07) | LOC: ER 08:47 | DX: K08.89 Other specified disorders of teeth and supporting structures (principal); Z53.21 Procedure and treatment not carried out due to patient leaving prior to being seen by health care provider ==